=== PATIENT | female | born 2000 | race Caucasian/White ===

== ENCOUNTER 2024-03-25 15:19 | Emergency (ER) | payer OTHER ==
[~2024-03-25] VITALS: Ht 162.6 cm; Wt 68.0 kg
[2024-03-25 15:21] VITALS: O2SAT 98
[2024-03-25 16:09] LABS: CLARITY URINE CLEAR (CLEAR); COLOR URINE YELLOW (YELLOW); GLUCOSE URINE NEGATIVE (NEGATIVE); KETONES URINE NEGATIVE (NEGATIVE); LEUKOCYTE ESTERASE URINE NEGATIVE (NEGATIVE); NITRITE URINE NEGATIVE (NEGATIVE); OCCULT BLOOD URINE NEGATIVE (NEGATIVE); PH URINE 7.5 (4.5-8.0); PROTEIN URINE NEGATIVE (NEGATIVE); SPECIFIC GRAVITY URINE 1.003 (1.005-1.030); UROBILINOGEN URINE 0.2 E.U./dL (0.2-1.0)
[2024-03-25 16:23] LABS: *AMPHETAMINES SCREEN URINE NEGATIVE (NEGATIVE)
[2024-03-25 16:24] LABS: *BARBITURATES SCREEN URINE NEGATIVE (NEGATIVE); *BENZODIAZEPINES SCREEN URINE NEGATIVE (NEGATIVE); *COCAINE SCREEN URINE NEGATIVE (NEGATIVE); CANNABINOID URINE SCREEN NEGATIVE (NEGATIVE); ECSTASY MDMA SCREEN URINE NEGATIVE (NEGATIVE); METHADONE URINE SCREEN NEGATIVE (NEGATIVE); OPIATES URINE SCREEN NEGATIVE (NEGATIVE); PHENCYCLIDINE URINE SCREEN NEGATIVE (NEGATIVE)
[2024-03-25] MEDS: LORAZEPAM 1MG TABLET PO ONE (16:30)
[2024-03-25] MEDS: ACETAMINOPHEN 325MG TABLET PO ONE (16:30)
[2024-03-25] MEDS: ONDANSETRON 4MG ODT PO ONE (18:00)
[2024-03-25] MEDS: KETOROLAC 15MG/ML VIAL IM ONE (18:00)
[2024-03-25 18:13] LABS: BASOPHILS % 1.1 % (0.0-2.0); EOSINOPHILS % 0.1 % (0.0-5.0); HEMATOCRIT. 37.3 % (36.0-48.0); HEMOGLOBIN. 12.1 g/dL (12.0-16.0); LYMPHOCYTES % 16.2 % (20.0-50.0); MEAN CORPUSCULAR HEMOGLOBIN 28.5 pg (28.0-32.0); MEAN CORPUSCULAR HGB CONC 32.4 g/dL (31.0-37.0); MEAN CORPUSCULAR VOLUME 88.1 fL (81.0-99.0); MEAN PLATELET VOLUME 7.7 fl (7.4-10.4); MONOCYTES % 5.1 % (2.0-8.0); NEUTROPHILS % 77.5 % (40.0-76.0); PLATELET 387 x1000/uL (130-400); RED BLOOD CELL COUNT 4.23 mill/uL (4.2-5.4); RED CELL DISTRIBUTION WIDTH 14.9 % (11.6-14.6); WHITE BLOOD COUNT 10.2 x1000/uL (4.5-11.0)
[2024-03-25 18:23] LABS: CHLORIDE 106 mEq/L (98-107); POTASSIUM 3.4 mEq/L (3.5-5.1); SODIUM 140 mEq/L (136-145)
[2024-03-25 18:24] LABS: CALCIUM 9.8 mg/dL (8.7-10.4); CARBON DIOXIDE 25 mEq/L (21-32)
[2024-03-25 18:29] LABS: CREATININE 0.6 mg/dL (0.6-1.0); GLUCOSE 98 mg/dL (70-105); UREA NITROGEN BLOOD 6 mg/dL (9-23)
[2024-03-25 18:31] LABS: ACETAMINOPHEN < 2 ug/mL (10-30)
[2024-03-25 18:38] LABS: ETHANOL BLOOD < 10 mg/dL (<10)
[2024-03-25 18:45] LABS: HCG SCREEN NEGATIVE
[2024-03-25] MEDS: IBUPROFEN 400MG TABLET PO ONE (21:20)
[2024-03-25] MEDS: METOCLOPRAMIDE HCL 10MG TABLET PO ONE (21:21)
[2024-03-26] MEDS ORDERED: DIPHENHYDRAMINE 50MG CAPSULE PO ONE (00:15)
[2024-03-26] MEDS: DIPHENHYDRAMINE 25MG CAPSULE PO NR (01:45)
[2024-03-26] MEDS: OLANZAPINE 10 MG/VIAL IM ONE ×2 (02:08→12:39)
[2024-03-26] MEDS: LORAZEPAM 2MG/ML INJ IM ONE (12:39)
[2024-03-26] MEDS: ACETAMINOPHEN 325MG TABLET PO ONE (17:59)
[2024-03-26 18:27] VITALS: BP 131/70; PULSE 83; RESP 15; TEMP 36.83628; O2SAT 100
== END 2024-03-26 20:56 ==
LOC: ER 15:19
DX: R45.851 Suicidal ideations (principal); F25.9 Schizoaffective disorder, unspecified; F41.9 Anxiety disorder, unspecified; Z20.822 Contact with and (suspected) exposure to COVID-19
CPT/HCPCS: 80305; 80048; 81003; 80307; 80329; 80320; 84703; 85025; 36415; 70450; 96372 ×2; 99285; 87426; J8597; Q0162; J1885; Q0163; J3490; J2060; Z7610 ×2; G0480